=== PATIENT | female | born 1950 | race Caucasian/White ===

== ENCOUNTER 2020-12-19 09:09 | Outpatient (REF) | payer MEDICARE, MEDICAID, SELFPAY ==
--- NOTE | ~2020-12-19 | XR_ITS ---
EXAMINATION: XR PELVIS CLINICAL INFORMATION: Pain. Post right hip replacement. COMPARISON: Previous x-ray most recent March 2019 TECHNIQUE: AP view of the pelvis. FINDINGS: There is a right hip replacement in satisfactory position. No fracture, dislocation or x-ray evidence of loosening is seen. There is severe arthritis at the left hip joint with joint space narrowing, osteophyte formation and subchondral cyst formation. Bones of the pelvis are unremarkable. There are degenerative changes of the lower lumbar spine. There is soft tissue arterial calcification. There are soft tissue calcifications in the pelvis probably representing small calcified fibroid. XR/XR pelvis 1-2V IMPRESSION: Satisfactory appearance of right hip replacement. Severe left hip arthritis.
== END 2020-12-19 09:10 | disposition home or self-care (01) ==
LOC: HO.HOSX 09:09
PROVIDERS: PCP Nurse Practitioner Family; Visit Provider Orthopaedic Surgery
DX: M16.12 Unilateral primary osteoarthritis, left hip (principal)
CPT/HCPCS: 72170; 99212

== ENCOUNTER → 2021-10-13 10:18 | Outpatient (BNVA) | payer MEDICARE, MEDICAID, SELFPAY | PROVIDERS: PCP Nurse Practitioner Family; Visit Provider Internal Medicine | DX: J44.9 Chronic obstructive pulmonary disease, unspecified (principal); F17.200 Nicotine dependence, unspecified, uncomplicated; Z71.6 Tobacco abuse counseling | CPT/HCPCS: 99202 ==

== ENCOUNTER 2021-11-05 08:00 | Outpatient (REF) | payer MEDICARE, MEDICAID, SELFPAY ==
--- NOTE | 2021-11-05 12:04 | PFT_ITS ---
FLOWS: FEV1 64% of predicted at 1.24 L. FVC 85% of predicted at 2.20 L. FEV1 to FVC ratio of 0.56. No bronchodilator response. LUNG VOLUMES: Total lung capacity 107% of predicted at 4.93 L. Residual volume 122% of predicted at 2.55 L. Slow vital capacity 94% of predicted at 2.39 L. Expiratory reserve volume 136% of predicted at 0.73 L. Diffusion capacity is moderately decreased. In comparison to pulmonary function test performed in July of 2015 FEV1, FVC, TLC have been without significant changes; residual volume has decreased by 0.85 L; slow vital capacity has increased by 0.88 L; expiratory reserve volume has increased by 0.40 L; diffusion capacity has increased by 1.73 mL/minute per mmHg. IMPRESSION: Moderate obstructive ventilatory defect with no bronchodilator response. Increased residual volume suggests air trapping. Decreased diffusion capacity suggests emphysema. MD MICHAEL Roman/MODL / [id number]
== END 2021-11-05 08:01 | disposition home or self-care (01) ==
LOC: HO.RESP 08:00
PROVIDERS: PCP Nurse Practitioner Family; Visit Provider Internal Medicine
DX: J44.9 Chronic obstructive pulmonary disease, unspecified (principal); F17.200 Nicotine dependence, unspecified, uncomplicated
CPT/HCPCS: 94060; 94727; 94729

== ENCOUNTER → 2021-11-26 09:40 | Outpatient (BNVA) | payer MEDICARE, MEDICAID, SELFPAY | PROVIDERS: PCP Nurse Practitioner Family; Visit Provider Internal Medicine | DX: J44.9 Chronic obstructive pulmonary disease, unspecified (principal); F17.210 Nicotine dependence, cigarettes, uncomplicated; Z71.6 Tobacco abuse counseling | CPT/HCPCS: 99212 ==

== ENCOUNTER 2022-03-19 13:18 | Outpatient (REF) | payer MEDICARE, MEDICAID, SELFPAY ==
--- NOTE | ~2022-03-19 | CT_ITS ---
EXAMINATION: CT CHEST SCREENING CLINICAL INFORMATION: Current smoker. 56 pack year history. COMPARISON: None. TECHNIQUE: Multidetector volumetric CT imaging of the chest is performed without contrast using low dose technique. Additional 2D coronal and sagittal reformatted images and axial 3D maximum intensity projection (MIP) images are generated on the CT workstation. This CT examination was performed using dose optimization techniques as appropriate, variously including the following: *Automated exposure control *Adjustment of mA and/or kV according to patient size (this includes techniques or standardized protocols for targeted exams where dose is matched to indication/reason for exam; i.e. extremities or head) *Use of iterative reconstruction technique DLP: 34 mGy-cm FINDINGS: LUNGS: There is evidence of emphysema. There is biapical pleural and parenchymal scarring. There are scattered areas of mild bronchial wall thickening and increased peribronchial attenuation, suggestive of airways disease.. There is a 2 mm left upper lobe nodule axial image 100 series 5. There is a 4 mm peripheral or subpleural left upper lobe nodule axial image 158 series 5. There is a 6 mm semisolid left lower lobe nodule axial image 213 series 5. This is adjacent cystic change inferiorly measuring 7 mm axial image 217 series 5. There is a 1 x 1.5 cm heterogeneous partially groundglass attenuation partially cystic and reticular density in the anterior segment of the right upper lobe axial image 228 series 5. On sagittal and coronal reconstructed images linear reticular component may correspond to subsegmental atelectasis or scarring. There is a 3 mm semisolid left upper lobe nodule axial image 227 series 5. There is a 2 mm peripheral or subpleural right lower lobe nodule axial image 224 series 5. There is a 3 mm left lower lobe nodule axial image 221 series 5. There is a 5 mm peripheral or subpleural right middle lobe nodule axial image through the 74 series 5. MEDIASTINUM: The mediastinum is normal. CORONARY ARTERY CALCIFICATION: Severe PLEURA: There is no pleural effusion. No pleural mass or thickening. AXILLA: No lymphadenopathy. UPPER ABDOMEN: Severe atherosclerotic disease. There may be several low-attenuation liver lesions. These are small measuring 5 mm or less and difficult to further characterize. OSSEOUS STRUCTURES: Degenerative changes of the spine. CT/CT lung screening IMPRESSION: Emphysema. Biapical pleural parenchymal scarring. Bilateral pulmonary nodules, largest a heterogeneous 1 x 1.5 cm nodule in the anterior segment of the right upper lobe. Numerous other smaller nodules and evidence of airways disease. Severe coronary artery calcification. ASSESSMENT: Lung-RADS category 4S: Suspicious. Severe coronary artery calcification. RECOMMENDATION: Low dose chest CT follow-up in 3 months recommended. Cardiology consultation for severe coronary artery calcification.
== END 2022-03-19 13:19 | disposition home or self-care (01) ==
LOC: HO.CT 13:18
PROVIDERS: PCP Nurse Practitioner Family; Visit Provider Physician Assistant Medical
DX: Z12.2 Encounter for screening for malignant neoplasm of respiratory organs (principal); F17.210 Nicotine dependence, cigarettes, uncomplicated
CPT/HCPCS: 71271; G0296

== ENCOUNTER → 2022-03-25 09:26 | Outpatient (BNVA) | payer MEDICARE, MEDICAID, SELFPAY | PROVIDERS: PCP Nurse Practitioner Family; Visit Provider Internal Medicine | DX: J44.9 Chronic obstructive pulmonary disease, unspecified (principal); R91.1 Solitary pulmonary nodule; F17.210 Nicotine dependence, cigarettes, uncomplicated | CPT/HCPCS: 99212 ==

== ENCOUNTER 2022-06-18 08:31 | Outpatient (REF) | payer MEDICARE, MEDICAID, SELFPAY ==
--- NOTE | ~2022-06-18 | CT_ITS ---
EXAMINATION: CT CHEST SCREENING CLINICAL INFORMATION: Smoker, 2 pack per day for 56 years COMPARISON: None available. TECHNIQUE: Multidetector volumetric CT imaging of the chest is performed without contrast using low dose technique. Additional 2D coronal and sagittal reformatted images and axial 3D maximum intensity projection (MIP) images are generated on the CT workstation. This CT examination was performed using dose optimization techniques as appropriate, variously including the following: *Automated exposure control *Adjustment of mA and/or kV according to patient size (this includes techniques or standardized protocols for targeted exams where dose is matched to indication/reason for exam; i.e. extremities or head) *Use of iterative reconstruction technique DLP: 34 mGy-cm FINDINGS: LUNGS: There is mild centrilobular emphysema without any acute pneumonic process. There are pulmonary nodules as visualized previously. A 2 mm nodule left upper lobe, axial image 96/6 A 4 mm subpleural nodule left upper lobe axial image 153/6 A 1.2 cm ill-defined nodule left lower lobe superior segment axial image 231/6 (previously measured 6 mm) A 2 mm subpleural nodule right upper lobe anterior segment image 232/6 A stable, ill-defined opacity right upper lobe anterior segment medially, question focal atelectasis A 3 mm semisolid nodule left upper lobe axial image 222/6 A 2 mm nodule right lower lobe subpleural location axial image 247/6. There are no new nodules visualized. MEDIASTINUM: Thyroid lobes are symmetrical and normal. The central trachea and the bronchi are widely patent. Heart size and great vessels are normal caliber. No pericardial effusion. No abnormal size mediastinal or hilar lymph nodes seen. CORONARY ARTERY CALCIFICATION: Moderate coronary artery calcifications are present. PLEURA: There is no pleural effusion. No pleural mass or thickening. AXILLA: No lymphadenopathy. UPPER ABDOMEN: Unremarkable OSSEOUS STRUCTURES: There is mild osteopenia. Mild ventral spondylosis lower dorsal spine. No aggressive lytic or sclerotic process. CT/CT lung screen follow up IMPRESSION: Stable multiple pulmonary nodules except for a left upper lobe nodule which has doubled in size in the superior segment left upper lobe image 231/6. Recommend PET/CT evaluation or a 3 month follow-up. ASSESSMENT: Lung-RADS category 4A. RECOMMENDATION: 3 month low-dose PET/CT exam.
== END 2022-06-18 08:32 | disposition home or self-care (01) ==
LOC: HO.CT 08:31
PROVIDERS: PCP Nurse Practitioner Family; Visit Provider Physician Assistant Medical
DX: Z12.2 Encounter for screening for malignant neoplasm of respiratory organs (principal); F17.210 Nicotine dependence, cigarettes, uncomplicated; R91.1 Solitary pulmonary nodule
CPT/HCPCS: 71250

== ENCOUNTER → 2022-07-02 10:23 | Outpatient (BNVA) | payer MEDICARE, MEDICAID, SELFPAY | PROVIDERS: PCP Nurse Practitioner Family; Visit Provider Surgery | DX: R91.1 Solitary pulmonary nodule (principal) | CPT/HCPCS: 99202 ==

== ENCOUNTER 2022-08-27 10:30 | Outpatient (REF) | payer MEDICARE, MEDICAID, SELFPAY ==
--- NOTE | ~2022-08-27 | XR_ITS ---
EXAMINATION: XR CHEST CLINICAL INFORMATION: Solitary pulmonary nodule Patient states left-sided lung surgery on August 11 COMPARISON: Low-dose chest CT 06/18/2022, chest radiograph 04/20/2010 TECHNIQUE: 2 views of the chest were obtained. FINDINGS: The lungs are hyperinflated. There is a small to moderate left pleural effusion. There is slight leftward shift of the mediastinum to the left of midline. There is no focal consolidation, interstitial pulmonary edema or pneumothorax. The bones are diffusely demineralized. No acute bony abnormality. XR/XR chest 2V IMPRESSION: Small to moderate left pleural effusion with slight leftward shift of the mediastinum.
== END 2022-08-27 10:31 | disposition home or self-care (01) ==
LOC: HO.XRAY 10:30
PROVIDERS: Visit Provider Surgery
DX: R91.1 Solitary pulmonary nodule (principal)
CPT/HCPCS: 71046

== ENCOUNTER 2022-09-10 10:26 | Outpatient (AMB) | payer MEDICARE, MEDICAID, SELFPAY ==
[2022-09-10 10:59] VITALS: BP 120/60; PULSE 54; O2SAT 94; BMI 20.1
--- NOTE | 2022-09-10 10:59 | A.OFFVIS_ITS ---
Intake Vital Signs 09/10/22 10:59 Height 5 ft 2 in Weight 110 lb BMI 20.1 BP 120/60 Blood Pressure Location Lt brachial Position Sitting Pulse 54 Pulse Oximetry (%) 94 Intake Visit Reasons: Davinci wedge Allergies Fish Containing Products Allergy (Intermediate, Verified 09/10/22 10:59) ITCHING air conditioning Adverse Reaction (Uncoded 09/10/22 10:59) Difficulty Breathing Medication List - Last Reconciled 09/11/22 by Oscar Brambila MD albuterol 90 mcg/actuation mcg inhalation albuterol sulfate 2.5 mg inhalation Q6H PRN [id number]-[id number] HMB 7-7-1.5 gram (Jag) ea PO atorvastatin 10 mg PO DAILY ibuprofen (Advil) 400 mg PO Q8H umeclidinium 62.5 mcg/actuation (Incruse Ellipta) 1 inh inhalation DAILY HPI Davinci wedge HPI Details 72-year-old woman current smoker but only smoking 2 cigarettes per day now previously smoked a pack per day for 45 years.? She is part of the lung cancer screening program here at [facility] and had a low-dose CT scan of the chest on 03/19/2022 followed up on 06/18/2022.? Her most recent CT scans have been reviewed interpreted by me directly.? This shows an increase in a 1.2 cm pulmonary nodule in the superior segment the left lower lobe that is partially spiculated and ill-defined.? There is no mediastinal lymphadenopathy a nd no pleural fluid.? There are scattered tiny sub 3 mm pulmonary nodules elsewhere.? Pulmonary function testing done on 11/05/2021 showed an FEV1 of 62% of predicted and a DLCO VA of 58% of predicted.? She was discussed at our multidisciplinary thoracic Oncology Conference. Ultimately, on 08/11/2022 she underwent a da Ori left lower lobe wedge resection with completion lobectomy. She did quite well postoperatively and has been discharged and doing well at home. Her pain is quite minimal at this point. She denies any drainage or fevers. She denies any worsening shortness of breath. Pathology from the operation was squamous cell carcinoma measuring 1.6 cm [id number]. Most of her complaints revolve around her hip which she needs to have replaced but has been canceled several times for various reasons.? She reports feeling generally good health and denies fevers chills soaking sweats or fatigue.? She denies chest pain.? She does have some shortness of breath with activity but her hip limits her much more than this does.? She denies cough or hemoptysis.? Other than above, 12 point review of systems was done and documented separately in the office chart with detailed social and family history. ? 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) Surgical History History of cholecystectomy History of lobectomy of lung (~2022) History of surgery on left wrist (~2010) History of total right hip replacement (~2018) Social History Patient Tobacco Use Status: Current someday Tobacco user Tobacco use type: Cigarette Cigarette Packs Per Day: 0.25 Cigarettes Per Day: 2 Years Smoked: (onset 17yo, 1ppd x 54yrs, now 1-3cig/week, 50pyh Physical Exam Vital Signs: Last Vital Signs Pulse 54 09/10/22 10:59 BP 120/60 09/10/22 10:59 Pulse Ox 94 09/10/22 10:59 BMI result Body Mass Index 20.1 nad rrr ctab abd soft nl bs wounds healing well Assessment & Plan Assessment & Plan (1) 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 No evidence of infection or lung collapse. I explained the pathology to her in detail which she seemed understand. Plan will be for the surveillance protocol post surgical treatment of a lung cancer which is a CAT scan every 6 months for the first 2 years followed by yearly for 3 years after that as long as there are no new changes. There will be a visit associated with each of these CAT scans. She understands and agrees to that plan. 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
== END 2022-09-10 11:20 | disposition home or self-care (01) ==
PROVIDERS: PCP Nurse Practitioner Family; Visit Provider Surgery
DX: C34.32 Malignant neoplasm of lower lobe, left bronchus or lung (principal)
CPT/HCPCS: 99024

== ENCOUNTER → 2022-09-10 10:26 | Outpatient (BNVA) | payer MEDICARE, MEDICAID, SELFPAY | PROVIDERS: PCP Nurse Practitioner Family; Visit Provider Surgery | DX: C34.32 Malignant neoplasm of lower lobe, left bronchus or lung (principal); Z98.890 Other specified postprocedural states ==

== ENCOUNTER 2023-07-08 08:22 | Outpatient (REF) | payer MEDICARE, SELFPAY ==
--- NOTE | ~2023-07-08 | CT_ITS ---
CT SINUS WITHOUT CONTRAST HISTORY: Deviated septum TECHNIQUE: CT images of the paranasal sinuses were acquired without contrast. This CT examination was performed using dose optimization techniques as appropriate, variously including the following: *Automated exposure control *Adjustment of mA and/or kV according to patient size (this includes techniques or standardized protocols for targeted exams where dose is matched to indication/reason for exam; i.e. extremities or head) *Use of iterative reconstruction technique DLP: 71.92 mGy-cm COMPARISON: None available FINDINGS: NASAL CAVITY: The nasal septum is relatively midline left middle turbinate alexander bullosa. The cribriform plate is intact. The lateral lamellae and fovea ethmoidalis are relatively symmetric. FRONTAL SINUS: Right: Essentially clear. The outflow tract is patent. Left: Essentially clear. The outflow tract is patent. ETHMOID AIR CELLS: Right: Essentially clear. Left: Essentially clear. SPHENOID SINUS: Right: Essentially clear. The outflow tract is patent. Left: Essentially clear. The outflow tract is patent. MAXILLARY SINUS: Right: Trace mucosal thickening inferiorly. The outflow tract is patent. Left: Essentially clear. The outflow tract is patent. OTHER: Intracranial atherosclerotic calcification is noted. Otherwise, the visualized intracranial structures are unremarkable on these low mAs images. Soft tissue in the external auditory canals, likely cerumen. The mastoid air cells and middle ear clefts are clear. Absent maxillary dentition. CT/CT sinus wo IV con IMPRESSION: Essentially clear paranasal sinuses. No air-fluid levels to indicate acute sinusitis. Left middle turbinate alexander bullosa. The nasal septum is relatively midline.
== END 2023-07-08 08:23 | disposition home or self-care (01) ==
LOC: HO.CT 08:22
PROVIDERS: PCP Nurse Practitioner Family; Visit Provider Otolaryngology
DX: J33.0 Polyp of nasal cavity (principal); J34.2 Deviated nasal septum
CPT/HCPCS: 70486

== ENCOUNTER 2024-02-14 07:17 | Outpatient (REF) | payer MEDICARE, SELFPAY ==
--- NOTE | ~2024-02-14 | CT_ITS ---
EXAMINATION: CT CHEST WITHOUT CONTRAST CLINICAL INFORMATION: Lung cancer. COMPARISON: CT lung screening 06/18/2022 TECHNIQUE: Multidetector volumetric CT imaging of the chest was done. Axial MIP volume rendering provided. Sagittal and coronal reformatted images were obtained. This CT examination was performed using dose optimization techniques as appropriate, variously including the following: *Automated exposure control *Adjustment of mA and/or kV according to patient size (this includes techniques or standardized protocols for targeted exams where dose is matched to indication/reason for exam; i.e. extremities or head) *Use of iterative reconstruction technique DLP 74 mGy/cm. 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 LUNGS: Mild centrilobular emphysematous lungs are seen without acute pneumonic process. The right lung is slightly hyperinflated more than the previous study. Bilateral apical parenchymal scarring and pleural thickening is seen. There are bilateral pulmonary nodules. There are 2 mm pulmonary nodule seen in left upper lobe on axial image 166/7, 172/7. The larger peripherally based nodular left upper lobe measuring 4 mm not visualized this time. Previously seen left lower lobe superior segment 1.2 cm nodule is not visualized on the present exam. It has resolved. Smaller 2 mm nodules in both upper lobes and right lower lobe are stable. No new large nodule or mass seen. Subpleural atelectatic changes are seen in left lower lobe. MEDIASTINUM: There is a left thyroid hypodense nodule measuring 1.3 to 1.1 cm is visualized. It was not in the [id number]-lubt on the last exam. The right thyroid lobe is normal. The central tracheal size has increased compared to previous study the tracheal and bronchial airway is otherwise widely patent. Heart size and the great vessels are normal caliber. No pericardial effusion seen. No abnormal size mediastinal hilar lymph nodes. CORONARY ARTERY CALCIFICATION: There is mild coronary artery calcifications present. PLEURA: There is bilateral apical pleural thickening and minimal left lower lobe medial basilar pleural thickening new since the previous study. AXILLA: No lymphadenopathy. UPPER ABDOMEN: Visualized liver, spleen, pancreas and bilateral adrenal glands are unremarkable. OSSEOUS STRUCTURES: No aggressive lytic or sclerotic process seen. There is ventral spondylosis mid dorsal within exam thoracic kyphosis of the thoracic or lumbar junction. CT/CT chest wo IV con IMPRESSION: Emphysematous lungs without acute pneumonic process. The right lung is more hyperinflated compared to previous exam. The tracheal size is increased as well. Dominant 1.2 cm nodule seen in the left lower lobe superior segment has resolved. There are several small 2-3 mm nodules seen previously, are stable. No new nodule seen. Fleischner guidelines were followed. Electronically signed by: Edwar Haywood MD 02/14/2024 09:53 AM [facility]
== END 2024-02-14 07:18 | disposition home or self-care (01) ==
LOC: HO.CT 07:17
PROVIDERS: PCP Nurse Practitioner Family; Visit Provider Surgery
DX: C34.32 Malignant neoplasm of lower lobe, left bronchus or lung (principal)
CPT/HCPCS: 71250

== ENCOUNTER → 2024-02-14 07:19 | Outpatient (BNV) | payer MEDICARE, SELFPAY | PROVIDERS: PCP Nurse Practitioner Family; Visit Provider Radiology Diagnostic Radiology | DX: R91.8 Other nonspecific abnormal finding of lung field (principal) | CPT/HCPCS: 71250 ==

== ENCOUNTER 2024-05-22 09:30 | Outpatient (AMB) | payer MEDICARE, MEDICAID, SELFPAY ==
--- NOTE | 2024-05-22 09:33 | MHC.OFFVIS ---
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 Insurance company went to patient's house and was told her right side was 0.93 and left side was 0.58. 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 Following noninvasive vascular testing, concerns were raised due to her DHRUV results?0.58 on the left and 0.93 on the right, dated 03/09/24?leading to this referral. She has a history of right hip replacement from 2019 and is currently facing challenges with her left leg, which she suspects will require surgical intervention due to increased symptoms and functional limitation, such as calf cramps that occur with physical exertion. These symptoms hinder her mobility, especially in stair climbing. Historically, she was a vtt-vacc-c-day smoker who now reports using only two cigarettes a week, indicative of substantial smoking cessation effort. She has no known history of diabetes or cardiovascular events. Recent falls led to the discovery and resection of a benign pulmonary nodule. She now presents for vascular evaluation. 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) History of tuberculosis (~1958) Nicotine dependence, cigarettes, uncomplicated COPD (chronic obstructive pulmonary disease) Hypercholesteremia Surgical History History of lobectomy of lung (~2022) History of total right hip replacement (~2018) History of surgery on left wrist (~2010) History of cholecystectomy Social History Patient Tobacco Use Status: Current someday Tobacco user Tobacco use type: Cigarette Cigarette Packs Per Day: 0.25 Cigarettes Per Day: 2 Years Smoked: (onset 17yo, 1ppd x 54yrs, now 1-3cig/week, 50pyh Review of Systems Const All systems reviewed & are unremarkable except as noted in HPI and below Reports no additional complaints ENT Reports Normal hearing present Card Denies chest pain, Denies chest pain at rest, Denies chest pain with activity and Denies pedal edema Resp Denies cough GI Denies abdominal pain Musc Denies abnormal gait, Denies muscle cramps and Denies radiating pain into limb Skin/Breast Denies skin ulcer and Denies wounds Neuro Reports Normal hearing present and Denies abnormal gait Psych Reports no additional complaints Physical Exam Const General: cooperative, healthy appearing and comfortable Orientation/consciousness: oriented to person, oriented to place and oriented to time HEENT Head: Yes normal to inspection Neck Neck: Yes normal visual inspection Carotids: no bruits Chest Chest palpation & inspection: normal inspection of the chest Resp Effort & Inspection: normal respiratory effort and able to speak in complete sentences Auscultation: clear to auscultation bilaterally, no crackles, no rales, no rhonchi and no wheezes Cardio Other: Bilateral DP signals Rate: regular rate Rhythm: regular rhythm Heart sounds: S1 normal heart sound present and S2 normal heart sound present Bruits: no carotid bruits Peripheral pulses: Peripheral pulses 2+ throughout GI Inspection: Yes normal to inspection Skin Wounds: no wounds Hair: normal Neuro General: oriented to person, oriented to place and oriented to time Cranial nerves: Yes CN's II-XII intact bilaterally and Yes Normal hearing present Cognition (Neuro): normal cognition Motor exam (neuro): 5/5 motor strength present throughout Extrem Other: venous exam: No significant superficial varicosities or spider telangiectasias, minimal edema General: No clubbing, No cyanosis and No edema Psych Appearance: grossly normal Mental Status: mental status grossly normal Speech and movement: Normal speech and movement present Assessment & Plan Assessment & Plan (1) PAD (peripheral artery disease): Code(s): I73.9 - Peripheral vascular disease, unspecified Category: Medical Plan: I provided an overview of the likely diagnosis of peripheral vascular disease with consideration of recent DHRUV testing results, recommending a follow-up vascular ultrasound for further clarity. I discussed potential interventions, emphasizing the need for continued smoking cessation, which the patient has significantly reduced. We explained the benefits of further evaluation through a hospital-based ultrasound to surpass the limitations of initial testing conducted at home. The importance of addressing the leg symptoms comprehensively, in view of potential hip surgery, was discussed to aid in enhancing mobility and quality of life. I emphasized timely follow-up, with centralized scheduling to coordinate this advanced imaging study, and reviewed plans for future appointments. The patient acknowledged understanding and was in agreement with the proposed evaluation and management strategy, agreeing to the outlined logistics and follow-up scheduling. Plan Patient was informed and verbally consented to the use of an ambient scribe for clinic note documentation during this visit. Orders: Orders US arterial duplex LE BI 1 Week I73.9 - Peripheral vascular disease, unspecified Patient Instructions: - Schedule and attend the vascular ultrasound for further evaluation of leg circulation. - Continue efforts in smoking cessation to improve overall health and vascular status. - Arrange transportation with available support, keeping in mind her mobility limitations. - Follow up with the appointment scheduling department and reach out if needed to ensure coordination with family or transport assistance. - Alert medical diagnostic radiographer if there are any changes in symptoms or new concerns. Coding Level of Care Code New Pt Level 4 (96891) Complex EM visit Add On G2211 Diagnoses PAD (peripheral artery disease) I73.9
--- OUTSIDE RECORDS SUMMARY | 2024-05-22 10:41 | XMS_ITS | Continuity of Care Document ---
Author Organization [facility] Kee Haynes Keshawn lt Address [address] [place] [address]- Care Team Providers Care Pit Shovel Operator Name Role Phone Ino TY, Renetta Clark Primary Care Physician Encounter [facility] Date(s): 04/19/24 - 05/19/24 [facility] Adult [address] [place] [address]- Encounter Type: Triage Allergies, Adverse Reactions, Alerts No Known Allergies Immunizations Given and Recorded Vaccine Date Status Refusal Reason SARS-CoV-2 (COVID-19) mRNA-1273 vaccine 07/21/21 R ecorded SARS-CoV-2 (COVID-19) mRNA BNT-162b2 vac 12/23/20 Recorded influenza virus vaccine, inactivated 12/04/20 Darinel rded influenza virus vaccine, inactivated 12/04/19 Darinel rded influenza virus vaccine, inactivated 11/27/18 Darinel rded influenza virus vaccine, inactivated 1 12/06/17 Gi andres influenza virus vaccine, inactivated 2 11/25/16 Gi andres SARS-CoV-2 (COVID-19) Ad26 vaccine 05/20/20 Record ed SARS-CoV-2 (COVID-19) Ad26 vaccine 05/13/20 Record ed pneumococcal 23-valent vaccine 11/27/18 Recorded pneumococcal 23-valent vaccine 3 12/06/17 Given tetanus/diphtheria/pertussis, acel(Tdap) 11/22/16 Recorded pneumococcal 13-valent vaccine 07/29/15 Given 1Result Comment: [12/06/2017] [facility] [place] [id number] 2Result Comment: [11/25/2016] [facility] [id number] 3Result Comment: [12/06/2017] [id number] Medications Albuterol (Eqv-ProAir HFA) 90 mcg/inh inhalation aerosol 2 puffs, Inhalation, Every 6 hours, # 8.5 Gm, 6 Refills, Maintenance, 09/26/23 9:30:00 AM EDT, [facility] # [facility], 25, INHALE 2 PUFFS EVERY 6 HOURS, 156.2, cm, 09/13/23 8:19:00 EDT, Height Start Date: 09/26/23 Status: Ordered Quantity: 8.5 Unit: g Repeat number: 1 atorvastatin 10 mg oral tablet 1 tablet, By Mouth, Daily, # 90 tablet, 1 Refills, Maintenance, 11/14/23 8:55:00 AM EDT, [facility] # [facility], 156.2, cm, 09/13/23 8:19:00 EDT, Height Start Date: 11/14/23 Status: Ordered Quantity: 90.0 Unit: tablet Repeat number: 1 Incruse Ellipta 62.5 mcg/inh inhalation powder 1 puffs, Inhalation, Daily, APART., # 90 each, 1 Refills, Maintenance, 10/19/23 11:38:00 AM EDT, [facility] # [facility], 156.2, cm, 09/13/23 8:19:00 EDT, Height Start Date: 10/19/23 Stop Date: 10/20/23 Status: Ordered Quantity: 90.0 Unit: each Repeat number: 2 losartan 25 mg oral tablet 1 tablet, By Mouth, Daily, # 30 tablet, 6 Refills, Maintenance, 08/05/23 6:42:00 AM EDT, [facility] # 50, 156.2, cm, 02/08/23 18:22:00 EST, Height Start Date: 08/05/23 Status: Ordered Quantity: 30.0 Unit: tablet Repeat number: 1 NEBULIZER FITO NEBULIZER FITO, See Instructions, # 1 each, 0 Refills, Maintenance, INSTRUCTED., 10/06/21 12:33:00 PM EDT, 156.2, cm, 09/29/21 9:00:00 EDT, Height Start Date: 10/06/21 Status: Ordered Quantity: 1.0 Unit: each Repeat number: 1 Nebulizer/Compressor See Instructions, # 1 each, Refills 0, Tot. Refills 0, Maintenance, DX: COPD J44.9, 07/23/21 3:02:00PM EDT, Supply Start Date: 07/23/21 Status: Ordered Quantity: 1.0 Unit: each Repeat number: 1 traMADol 50 mg oral tablet 1 tablet, By Mouth, Every 12 hours, PRN NEEDED FOR PAIN, # 45 tablet, 2 Refills, Maintenance, 01/23/24 9:08:00 AM EST, [facility] # [facility], 156.2, cm, 09/13/23 8:19:00 EDT, Height Start Date: 01/23/24 Stop Date: 04/22/24 Status: Ordered Quantity: 45.0 Unit: tablet Repeat number: 3 Problem List Condition Confirmation Course Effective Dates Status Health Status Informant Allergic rhinitis Confirmed Active Anxiety Confirmed Active Chronic low back pain Confirmed Active COPD (chronic obstructive pulmonary disease) Confirmed Active COVID-19 virus infection Confirmed Active Hx of tuberculosis Confirmed Active Hypercholesteremia Confirmed Active Hypertension Confirmed Active Squamous cell carcinoma of lung Confirmed Active Tobacco abuse Confirmed Active Social History Social History Type Response Smoking Status Current every day sm oker; Type: Cigarettes; Tobacco use times per day: 1/2 PPD; Started at age: 13; entered on: 07/29/15 Sex Sex Representation Female (finding) Patient Care team information Care Team Personnel Name: Ino TY, Renetta Clark Position: [facility] PCO Associate Professional Member Role: PCP Address: [address] [place] [id number] Telecom: Care Team Related Persons Name: TANMAY SEVILLA Name: AKANKSHA OWEN Insurance Providers Guarantor name: MELVIN LUKE Health Plan Information #: 1 Payer: [employer] MEDICARE ADV HMO Member Number: NA Policy Number: NA Group Number: NA Health Plan Information #: 2 Payer: [place] Member Number: NA Policy Number: NA Group Number: NA
--- OUTSIDE RECORDS SUMMARY | 2024-05-22 10:41 | XMS_ITS | Clinical Summary ---
Author Organization [facility] Address [address] [place] [address] Phone Care Team Providers Care Shovel Mechanic Name Role Phone Renetta Mckinnon PHYSICAL MEDICINE SPECIALIST Primary Care Provider Allergies Active Allergy Reactions Criticality Noted Date Comments Fish Derived 07/13/2022 Medications albuterol HFA (PROAIR HFA ; PROVENTIL HFA ; VENTOLIN HFA) 90 mcg/actuation inhaler Inhale 2 Puffs into the lungs every 4 hours as needed. Active atorvastatin (LIPITOR) 10 mg tablet Take 1 Tablet by mouth daily. Active lactose-reduced food (NUTRITIONAL SUPPLEMENT ORAL) NUTRITIONAL SUPPLEMENTS (ANTHONY/HMB OR) Take 771.5 g by mouth daily. Active umeclidinium (Incruse Ellipta) 62.5 mcg/actuation inhalation Inhale 1 Inhaler into the lungs daily. Active Active Problems Problem Noted Date Diagnosed Date History of lung cancer 02/21/2024 Assessment & Plan (02/21/2024 4:16 PM EST): Ms. Rubalcava is a 73-year-old female who had a robotic left lower lobectomy in August 2022 for stage I squamous cell carcinoma. The patient's most recent surveillance chest CT scan performed at [facility] on February 14, 2024 shows no new, or worsening, pulmonary nodules or thoracic adenopathy to suggest recurrence or new disease. Will continue with routine chest CT surveillance the next of which will be in 6 months, August 2024. This will be done at [facility] per the patient's request and ease. Patient will have a follow-up visit in the office following the CT scan. Resolved Problems Problem Noted Date Diagnosed Date Resolved Date Primary cancer of left lower lobe of lung (CMS/HCC V24, CMS/HCC V28) 04/14/2023 02/21/2024 Overview (12/29/2023): Last Assessment & Plan: 72-year-old woman had a da Ori left lower lobe wedge resection with completion lobectomy on 08/11/2022 for squamous cell carcinoma 1.6 cm T1b N0. Her first 6- month follow-up CT scan shows no evidence of recurrence or new disease. I discussed with her in detail the findings of the CAT scan as described in the HPI. We also discussed surveillance protocol after surgery for lung cancer which is a CAT scan every 6 months for the first 2 years postoperatively followed by yearly for 3 years after that as long as there are no new changes. Each CAT scan is followed by visit with us. Plan then will be for a CAT scan in 6 months which she would like to have at [place] as it is much easier to get to and then follow-up in the office with one of the PAs. All questions were answered. Encounters Date Type Department Care Team Description 02/23/2024 9:30 AM EST Office Visit Thoracic Surgery - [address] [place] [id number] Ingrid Carbajal PA History of lung cancer from Last 3 Months Immunizations Name Administration Dates Next Due [employer] SARS-CoV-2 COVID -19, vector-nr, rS-Ad26, preservative free 05/20/2020 [employer] SARS-CoV-2 COVID-19, mRNA, LNP-S, preservative free 12/23/2020 Surgical History Surgery Date Site/Laterality Comments CHOLECYSTECTOMY PROCEDURE: HISTORICAL CHOLECYSTECTOMY HIP ARTHROPLASTY Right PROCEDURE: HISTORICAL HIP REPLACEMENT WRIST SURGERY Left PROCEDURE: HISTORICAL WRIST SURGERY Medical History Medical History Date Comments COPD (chronic obstructive pu lmonary disease) (CMS/HCC V24, CMS/HCC V28) DX:COPD (chronic o bstructive pulmonary disease) (HCC) Tuberculosis of lung DX:Tubercul osis of lung Hypercholesteremia DX:Hyperchole steremia Nicotine dependence DX:Nicotine dependence Primary cancer of left lower lobe of lung (CMS/HCC V24, CMS/HCC V28) 04/14/2023 Last Assessment & Plan : 72-year-old woman had a da Ori left lower lobe wedge resection with completion lobectomy on 08/11/2022 for squamous cell carcinoma 1.6 cm T1b N0. Her first 6-month follow-up CT scan shows no evidence of recurrence or new disease. I discussed with her in detail the findings of the CAT scan as described in the HPI. We also discussed surveillance protocol after surgery Social History Tobacco Use Types Packs/Day Years Used Date Smoking Tobacco: Every Day Tobacco Cessation:Ready to Q uit: Not Asked; Counseling Given: Not Answered Alcohol Use Standard Drinks/Week Comments Not Currently 0 (1 standard drink = 0.6 oz pur e alcohol) Comments Unknown Sex and Gender Information Value Date Recorded Sex Assigned at Not on file Legal Sex Female 8:25 PM EST Gender Identity Not on file Sexual Orientation Not on file Obstetrics History Last Filed Vital Signs Vital Sign Reading Time Taken Comments Blood Pressure 150/79 02/23/2024 9:27 AM EST Pulse 95 02/23/2024 9:27 AM EST Temperature 36.2 ??C (97.2 ??F) 02/23/2024 9:27 AM ES T Respiratory Rate 16 02/23/2024 9:27 AM EST Oxygen Saturation 98% 02/23/2024 9:27 AM EST Inhaled Oxygen Concentration - - Weight 48.4 kg (106 lb 11.2 oz) 02/23/2024 9:27 AM EST Height 154.9 cm (5' 1 ) 02/23/2024 9:27 AM EST Body Mass Index 20.16 02/23/2024 9:27 AM EST Plan of Treatment Health Maintenance Due Date Last Done Comments Breast Cancer Screening 1950 Zoster Vaccines (1 of 2) 1968 RSV Immunization Adult Patients (1 - Risk 60-74 years 1-dose series) 2009 Cholesterol Screening (Lipid Panel) 03/04/2023 Colorectal Cancer Screening: Colonoscopy 03/04/2023 Depression Screening 03/04/2023 Falls Risk Assessment 03/04/2023 Hepatitis C Screening 03/04/2023 Medicare Annual Wellness Visit 03/04/2023 Osteoporosis Screening (Bone Density Screening) 03/04/2023 Social Influencers of Health Screening 03/04/2023 Hypertension/CHF/CAD Annual BMP Blood Test 02/23/2024 DTaP,Tdap,and Td Vaccines (2 - Td or Tdap) 11/22/2026 11/22/2016 Pneumococcal Vaccine: 50+ Years Completed 11/27/2018, 12/06/2017, 07/29/2015 COVID-19 Vaccine Completed 10/20/2023, 06/2022, 07/21/2021, Additional history exists Influenza Vaccine Completed 10/25/2023, , 12/04/2020, Additional history exists HIB Vaccines Aged Out No longer eligi ble based on patient's age to complete this topic HPV Vaccines Aged Out No longer eligi ble based on patient's age to complete this topic Hepatitis A Vaccines Aged Out No long er eligible based on patient's age to complete this topic Hepatitis B Vaccines Aged Out No long er eligible based on patient's age to complete this topic IPV Vaccines Aged Out No longer eligi ble based on patient's age to complete this topic MMR Vaccines Aged Out No longer eligi ble based on patient's age to complete this topic Meningococcal ACWY Vaccine Aged Out N o longer eligible based on patient's age to complete this topic Meningococcal B Vaccine Aged Out No l onger eligible based on patient's age to complete this topic RSV Immunization Patients Under 20 months Aged Out No longer eligible based on patient's age to complete this topic Varicella Vaccines Aged Out No longer eligible based on patient's age to complete this topic Insurance AETNA MEDICARE ADVANTAGE MEDICAID - [place] Advance Directives Documents on File Type Date Recorded Patient Client Support Representative Expl anation Health Care Decision (hx) 08/02/2022 HE ALTH CARE PROXY Health Care Decision (hx) 08/02/2022 HE ALTH CARE PROXY Health Care Decision (hx) 08/02/2022 HE ALTH CARE PROXY Care Teams Shovel Mechanic Relationship Specialty Start Date End Date Renetta Mckinnon NP [address] [facility] [address] PCP - General 07/06/22
== END 2024-05-22 09:54 | disposition home or self-care (01) ==
LOC: HO.HVS 09:30
PROVIDERS: PCP Nurse Practitioner Family; Visit Provider Surgery Vascular Surgery
DX: I73.9 Peripheral vascular disease, unspecified (principal)
CPT/HCPCS: 99204; G2211

== ENCOUNTER → 2024-05-22 09:30 | Outpatient (BNVA) | payer MEDICARE, MEDICAID, SELFPAY | PROVIDERS: PCP Nurse Practitioner Family; Visit Provider Surgery Vascular Surgery | DX: I73.9 Peripheral vascular disease, unspecified (principal) | CPT/HCPCS: 99202 ==

== ENCOUNTER 2024-07-11 08:38 | Outpatient (REF) | payer MEDICARE, MEDICAID, SELFPAY ==
--- NOTE | ~2024-07-11 | US_ITS ---
EXAMINATION: US NONINVASIVE ASSESSMENT OF THE bilateral LOWER EXTREMITY WITH ARTERIAL DUPLEX AND ANKLE BRACHIAL INDICES (ABIS) CLINICAL INFORMATION: Cerebral vascular disease. COMPARISON: None available. TECHNIQUE: Duplex Doppler techniques with waveform analysis and measurement of velocities in the common femoral, profunda femoris, superficial femoral, popliteal and tibial arteries were performed. In addition, ankle pulse volume recordings, ankle pressure measurements and ankle brachial indices were obtained of the lateral lower extremity arterial system. The study was performed only at rest. FINDINGS: NONINVASIVE ASSESSMENT OF THE ARTERIES OF BILATERAL LOWER EXTREMITIES WITH ABIs: RIGHT LEG: Ankle-brachial index: 0.56 Ankle PVR waveform: Abnormal LEFT LEG: Ankle-brachial index: 0.43 Left ankle PVR: Abnormal DHRUV Reference: 0.9 - 1.4 = normal - no significant arterial disease 0.7 - 0.89 = mild peripheral arterial disease 0.51 - 0.69 = moderate peripheral arterial disease 0.50 = severe peripheral arterial disease RIGHT LOWER EXTREMITY DUPLEX ULTRASOUND: Common femoral artery: 197 cm/s. Biphasic waveform. Profunda femoris artery: 146 cm/s. Biphasic waveform. Superficial femoral artery (proximal): 106.4 cm/s. Biphasic waveform Superficial femoral artery (mid): 103.6 cm/s. Biphasic waveform Superficial femoral artery (distal): 123.5 cm/s. Is biphasic waveform Popliteal artery: 41.8 cm/s. Posterior tibial artery: 30.0 cm/s. Peroneal artery velocity: 18.9 cm/s. Dorsalis pedis artery velocity: 8.7 cm/s. Anterior tibial artery: Velocity measures 13.7 cm/s. LEFT LOWER EXTREMITY DUPLEX ULTRASOUND: Common femoral artery: 69.7 cm/s. Biphasic waveform. Profunda femoris artery: 61.5 cm/s. Monophasic waveform. Superficial femoral artery (proximal): 46.5 cm/s. Monophasic waveform Superficial femoral artery (mid): 43.8 cm/s. Biphasic waveform Superficial femoral artery (distal): 87.3 cm/s. Is biphasic waveform Popliteal artery: 41.7 cm/s. Posterior tibial artery: 18.6 cm/s. Pleural artery: Velocity 9.3 cm/second. Dorsalis pedis artery: Velocity measures 6.3 cm/second. Anterior tibial artery: Velocity measures 8.4 cm/second. Imaging of aorta reveals normal aortic caliber. The distal aortic velocity waveforms is 29.4 cm/second within normal limits. The right common iliac artery velocities are increased measuring 108.6 approximately and 224.9 distally with increased turbulence waveform suggestive of distal right external iliac artery inflow disease. Incidental finding of an arrhythmia noted. US/US arterial duplex BI w/ DHRUV IMPRESSION: Significant atherosclerotic inflow disease involving the right external iliac artery increased velocities in the right common femoral arteries and atherosclerotic plaque. There is a drop 1 velocities from the distal SFA to popliteal artery suggestive of supra popliteal and popliteal artery disease and mild stenosis. Atherosclerotic inflow disease involving the left external iliac artery with dampened and decreased velocity in the right proximal extremity including common femoral and superficial femoral arteries. Mild atherosclerotic disease proximal to left dorsalis pedis and distal peroneal arteries. No significant plaque or stenosis in left lower extremity. Normal caliber abdominal aorta and velocities. Electronically signed by: Edwar Haywood MD 07/17/2024 10:13 AM EDT
--- OUTSIDE RECORDS SUMMARY | 2024-07-11 08:49 | XMS_ITS | Clinical Summary ---
Author Organization [facility] Address [address] [place] [address] Phone Care Team Providers Care Currency Machine Operator Name Role Phone Renetta Mckinnon SOCIAL INSURANCE ADMINISTRATOR Primary Care Provider [phone] Allergies Active Allergy Reactions Criticality Noted Date [...] recent surveillance chest CT scan performed at [facility] on February 14, 2024 shows no new, or worsening, pulmonary nodules or thoracic adenopathy to suggest recurrence or new disease. Will continue with routine chest CT surveillance the next of which will be in 6 months, August 2024. This will be done at [facility] per the patient's request and ease. Patient [...] which she would like to have at [facility] as it is much easier to get to and then follow-up in the office with one of the PAs. All questions were answered. Immunizations Name Administration Dates Next Due [employer] SARS-CoV-2 COVID -19, vector-nr, rS-Ad26, preservative free 05/20/2020 [employer] SARS-CoV-2 COVID-19, mRNA, LNP-S, preservative free 12/23/2020 Surgical History Surgery Date Site/Laterality Comments CHOLECYSTECTOMY PROCEDURE: HISTORICAL CHOLECYSTECTOMY HIP ARTHROPLASTY Right PROCEDURE: HISTORICAL HIP REPLACEMENT WRIST SURGERY Left PROCEDURE: HISTORICAL WRIST SURGERY Medical History Medical History Date Comments COPD (chronic obstructive pu lmonary disease) ([facility]/HCC V24, CMS/HCC V28) DX:COPD (chronic o bstructive [...] 03/04/2023 Hypertension/CHF/CAD Annual BMP Blood Test 02/23/2024 COVID-19 Vaccine ( season) 2024 10/20/2023, 01/11/2023, 07/21/2021, Additional history exists DTaP,Tdap,and Td Vaccines (2 - Td or Tdap) 11/22/2026 11/22/2016 Pneumococcal Vaccine: 50+ Years Completed 11/27/2018, 12/06/2017, 07/29/2015 Influenza Vaccine Completed 10/25/2023, , 12/04/2020, Additional [...] Documents on File Type Date Recorded Patient Product Operations Associate Expl anation Health Care Decision (hx) 08/02/2022 HE ALTH CARE PROXY Health Care Decision (hx) 08/02/2022 HE ALTH CARE PROXY Health Care Decision (hx) 08/02/2022 HE ALTH CARE PROXY Care Teams Currency Machine Operator Relationship Specialty Start Date End Date Renetta Mckinnon NP [address] [facility] [place] [place] [address] PCP - General 07/06/22
== END 2024-07-11 08:39 | disposition home or self-care (01) ==
LOC: HO.US 08:38
PROVIDERS: PCP Nurse Practitioner Family; Visit Provider Surgery Vascular Surgery
DX: I73.9 Peripheral vascular disease, unspecified (principal); R94.39 Abnormal result of other cardiovascular function study; Z13.6 Encounter for screening for cardiovascular disorders
CPT/HCPCS: 76706; 93922; 93925

== ENCOUNTER → 2024-07-11 08:40 | Outpatient (BNV) | payer MEDICARE, MEDICAID, SELFPAY | PROVIDERS: PCP Nurse Practitioner Family; Visit Provider Radiology Diagnostic Radiology | DX: I73.9 Peripheral vascular disease, unspecified (principal) | CPT/HCPCS: 76706 ==

== ENCOUNTER 2024-07-24 08:43 | Outpatient (AMB) | payer MEDICARE, MEDICAID, SELFPAY ==
--- NOTE | 2024-07-24 08:54 | MHC.OFFVIS ---
Vital Signs 07/24/24 08:57 Height 5 ft 1 in Weight 110 lb BMI 20.8 Intake Visit Reasons: follow up Arterial US 07/11/24 Intake Note: follow up Arterial US 07/11/24. Pt states Left LE worse than Right LE. Pt main complaint is the Left hip. Auto Radiator Specialist Required: No Accompanied by: Self / Same As Patient Allergies Fish Containing Products Allergy (Intermediate, Verified 07/24/24 08:59) ITCHING air conditioning Adverse Reaction (Uncoded 07/24/24 08:59) Difficulty Breathing HPI HPI follow up Arterial US 07/11/24: Details: The patient is a 73-year-old female presenting with peripheral vascular disease for a routine follow-up. She reports ongoing leg soreness, particularly in the left leg. The discomfort is exacerbated by exercises that require bending the leg, causing significant pain that does not subside without medication. This correlates with recent ultrasound findings i indicating decreased bilateral lower extremity arterial circulation.. She has reduced her smoking habit from a pack a day to almost none over the last three to four years. The patient is on aspirin and statin. She now presents for vascular follow-up. Of note she does smoke about a cigarette daily which is down from a pack a day nearly 3-4 years prior. She is a nondiabetic. 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 (~2022) History of tuberculosis (~1958) Nicotine dependence, cigarettes, uncomplicated COPD (chronic obstructive pulmonary disease) Hypercholesteremia Surgical History History of lobectomy of lung (~2022) History of total right hip replacement (~2018) History of surgery on left wrist (~2010) History of cholecystectomy Social History Patient Tobacco Use Status: Current someday Tobacco user Tobacco use type: Cigarette Cigarette Packs Per Day: 0.25 Cigarettes Per Day: 2 Years Smoked: (onset 17yo, 1ppd x 54yrs, now 1-3cig/week, 50pyh Review of Systems Const All systems reviewed & are unremarkable except as noted in HPI and below Reports no additional complaints ENT Reports Normal hearing present Card Denies chest pain, Denies chest pain at rest, Denies chest pain with activity and Denies pedal edema Resp Denies cough GI Denies abdominal pain Musc Denies abnormal gait, Denies muscle cramps and Denies radiating pain into limb Skin/Breast Denies skin ulcer and Denies wounds Neuro Reports Normal hearing present and Denies abnormal gait Psych Reports no additional complaints Physical Exam Vital Signs: BMI result Body Mass Index 20.8 Const General: cooperative, healthy appearing and comfortable Orientation/consciousness: oriented to person, oriented to place and oriented to time HEENT Head: Yes normal to inspection Neck Neck: Yes normal visual inspection Carotids: no bruits Chest Chest palpation & inspection: normal inspection of the chest Resp Effort & Inspection: normal respiratory effort and able to speak in complete sentences Auscultation: clear to auscultation bilaterally, no crackles, no rales, no rhonchi and no wheezes Cardio Rate: regular rate Rhythm: regular rhythm Heart sounds: S1 normal heart sound present and S2 normal heart sound present Bruits: no carotid bruits Peripheral pulses: Peripheral pulses 2+ throughout GI Inspection: Yes normal to inspection Skin Wounds: no wounds Hair: normal Neuro General: oriented to person, oriented to place and oriented to time Cranial nerves: Yes CN's II-XII intact bilaterally and Yes Normal hearing present Cognition (Neuro): normal cognition Motor exam (neuro): 5/5 motor strength present throughout Extrem Other: venous exam: No significant superficial varicosities or spider telangiectasias, minimal edema General: No clubbing, No cyanosis and No edema Psych Appearance: grossly normal Mental Status: mental status grossly normal Speech and movement: Normal speech and movement present Results Reviewed Results Reviewed: Noninvasive arterial testing dated 07/11/2024 demonstrates DHRUV on the right of 0.56 and on the left of 0.43. Written report and images were reviewed. Assessment & Plan Assessment & Plan (1) PAD (peripheral artery disease): Code(s): I73.9 - Peripheral vascular disease, unspecified Category: Medical Plan: Patient notes leg pain when walking distances. I have discussed the pathophysiology of peripheral vascular disease with the patient. I have also discussed risk factor modification. I have reviewed the patient's arterial testing which reveals DHRUV of 0.43 and SFA disease. the patient would benefit from a left leg endovascular peripheral angiogram with possible angioplasty, stent, and/or atherectomy. This has been discussed in detail with the patient along with risks, benefits, and complications. This includes but is not limited to bleeding, infection, heart attack, need for emergent surgical repair, limb ischemia, blood vessel damage, bleeding, puncture, kidney injury, bruising, allergic reaction, and skin reaction. The patient demonstrates a clear understanding. We will schedule for the next appropriate time. Thank you for allowing us to assist in this patient's care. Coding Level of Care Code Est Pt Level 4 (47901) Complex EM visit Add On G2211 Diagnoses PAD (peripheral artery disease) I73.9
[2024-07-24 08:57] VITALS: BMI 20.8
--- OUTSIDE RECORDS SUMMARY | 2024-07-24 09:07 | XMS_ITS | Clinical Summary ---
Author Organization [facility] Address [address] [place] [address] Phone Care Team Providers Care Upper Tier Name Role Phone Renetta Mckinnon DOZER OPERATOR Primary Care Provider Allergies Active Allergy Reactions [...] recent surveillance chest CT scan performed at [facility] on February 14, 2024 shows no new, or worsening, pulmonary nodules or thoracic adenopathy to suggest recurrence or new disease. Will continue with routine chest CT surveillance the next of which will be in 6 months, August 2024. This will be done at [facility] per the patient's request and ease. [...] which she would like to have at [place] as it is much easier to get to and then follow-up in the office with one of the PAs. All questions were answered. Immunizations Name Administration Dates Next Due Ringio/Leadformance SARS-CoV-2 COVID -19, vector-nr, rS-Ad26, preservative free 05/20/2020 Deskwanted SARS-CoV-2 COVID-19, mRNA, LNP-S, preservative free 12/23/2020 Surgical History Surgery Date Site/Laterality Comments CHOLECYSTECTOMY PROCEDURE: HISTORICAL CHOLECYSTECTOMY HIP ARTHROPLASTY Right PROCEDURE: HISTORICAL HIP REPLACEMENT WRIST SURGERY Left PROCEDURE: HISTORICAL WRIST SURGERY Medical History Medical History Date Comments COPD (chronic obstructive pu lmonary disease) ([facility]/HCC V24, CMS/HCC V28) DX:COPD (chronic o bstructive [...] Documents on File Type Date Recorded 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
== END 2024-07-24 09:26 | disposition home or self-care (01) ==
LOC: HO.HVS 08:44
PROVIDERS: PCP Nurse Practitioner Family; Visit Provider Surgery Vascular Surgery
DX: I73.9 Peripheral vascular disease, unspecified (principal)
CPT/HCPCS: 99214; G2211

== ENCOUNTER → 2024-07-24 08:43 | Outpatient (BNVA) | payer MEDICARE, MEDICAID, SELFPAY | PROVIDERS: PCP Nurse Practitioner Family; Visit Provider Surgery Vascular Surgery | DX: M79.662 Pain in left lower leg (principal); M79.661 Pain in right lower leg; I73.9 Peripheral vascular disease, unspecified | CPT/HCPCS: 99212 ==

== ENCOUNTER 2024-08-01 07:42 | Day surgery (SDC) | payer MEDICARE, MEDICAID, SELFPAY ==
[2024-08-01] VITALS (24 sets, daily range): BP systolic 118–156; BP diastolic 45–70; PULSE 57–77; RESP 14–22; TEMP 36.1–36.5; O2SAT 93–100; BMI 20.8
[2024-08-01 08:54] LABS: Basophils Percent Auto 0.6 % (0-2); Eosinophils Absolute Auto 0.1 X10*3/uL (0.0-0.4); Eosinophils Percent Auto 2.1 % (0-4); Hematocrit 36.4 % (37.0-47.0); Hemoglobin 12.3 g/dl (12.0-16.0); Imm Gran Abs Auto 0.01 X10*3/uL (0.00-0.03); Imm Gran Pct Auto 0.2 % (0.0-0.4); Lymphocytes Absolute Auto 1.3 X10*3/uL (1.2-4.9); Lymphocytes Percent Auto 26.6 % (20-40); MANUAL DIFF FLAG NO; Mean Corpuscular HGB Conc 33.8 g/dl (31.0-35.0); Mean Corpuscular Hemoglobin 31.9 pg (27.0-33.0); Mean Corpuscular Volume 94.5 fL (80.0-98.0); Mean Platelet Volume 9.1 fL (9.4-12.3); Monocytes Absolute Auto 0.3 X10*3/uL (0.1-1.2); Monocytes Percent Auto 6.2 % (2-11); Neutrophils Absolute Auto 3.1 x10*3/uL (2.0-8.3); Neutrophils Percent Auto 64.3 % (45-73); Platelet Count 243 X10*3/uL (160-400); Red Blood Count 3.85 X10*6/uL (4.20-5.50); White Blood Count 4.8 X10*3/uL (4.8-10.8)
[2024-08-01 09:14] LABS: Blood Urea Nitrogen 13 mg/dL (9-16); Creatinine Clr Calc Pharmacy 51.6; Estimated Glomerular Filt Rate > 60
[2024-08-01] MEDS: Midazolam HCl 2 MG/2 ML VIAL 0.5 MG IVPUSH ×2 (09:30→09:45)
[2024-08-01] MEDS: fentaNYL citrate/PF 100 MCG/2 ML VIAL 25 MCG IVPUSH ×2 (09:30→09:45)
[2024-08-01] MEDS: Heparin Sodium,Porcine 10,000 UNIT/10 ML VIAL 4000 UNIT IVPUSH (09:53)
[2024-08-01] MEDS: Heparin Sodium,Porcine 10,000 UNIT/10 ML VIAL 1000 UNIT IVPUSH (10:02)
--- NOTE | 2024-08-01 10:33 | P.OP_ITS ---
Operative Note Operative Note Date of Service: 08/01/24 Narrative: Angiogram report from [facility] Preoperative diagnosis: Atherosclerosis of left lower extremity with activity limiting claudication Postoperative diagnosis: Same Procedure: 1. Ultrasound-guided right common femoral access 2. Aortogram with bilateral lower extremity runoff 3. Ultrasound-guided left common femoral access 4. Left common iliac and external iliac plasty and stent Surgeon:Armando Jorgensen M.D., FACS, RPVI Drying Oven Attendant:None Anesthesia: Local with moderate conscious sedation. Total intraservice moderate sedation time was 52 minutes. I monitored the patient's level of consciousness and physiologic status continuously throughout the procedure. Specimens:none Drains:none Estimated blood loss: Less than 10 ml Radiation Dose: 208.4 mGy Implant: Lincoln VBX 8 x 59, Medtronic Impact DCB 5 x 40 Indications: 74-year-old female with significant smoking history bilateral lower extremity pain. Been worked up for pain issues but was noted on noninvasive testing do have peripheral vascular disease along with diminished ABIs. She now presents for endovascular intervention The patient has signed the informed consent after reviewing risks, complications, benefits, and alternatives previously discussed with the patient. The patient was given the opportunity to ask any additional questions or voice any concerns. All questions were answered to the patient's satisfaction. Procedure in detail: Patient was brought to the angiography suite prior to which a time-out was called for patient identification and site verification. Bilateral groins were prepped and draped in the standard surgical fashion. Under ultrasound guidance right common femoral was punctured with micro puncture needle and wire. Subsequently a precision 5 Scottish sheath was then placed. Citycelebrityson wire was advanced to the level of the aorta. 5 Scottish Flush catheter was brought up and parked at the level of the renal arteries. Aortogram was then undertaken. Catheter was brought down to the level of the iliac bifurcation. Iliacs and runoff was performed through the flush catheter that was parked at the bifurcation and a power injection was performed to visualize bilateral runoff vessels. Subsequently the catheter was then brought in up and over to the left side common iliac. We were unable to traverse the occlusion in the common iliac. We subsequently punctured the left side under ultrasound guidance. In a similar fashion we placed a 5 Scottish precision sheath. We were then able to traverse this lesion with a Glidewire Advantage followed by a catheter. We did confirmed true lumen by instilling the catheter with contrast. Once this was accomplished we administered 5000 units of systemic heparin 4000 1st with an additional 1000 bolus after ACT. Once this was done we were able to plasty the common iliac and external iliac stenosis on the left side with a 5 x 40 regular balloon. We then upsized to a 7 Scottish sheath. Once we did obtain lumen we then followed this with a covered balloon expandable 8 x 59 stent. Once this was deployed we noticed that there was a mild stenosis distal to this we initially plasty this with a 5 x 40 balloon and subsequently followed this with a drug coated 5 x 40 balloon. This was brought into position in under 3 minutes and insufflated for a total of 3 minutes in duration. On the right side a 5 Scottish CELT closure device was then placed. In a similar fashion on the left side a 7 Scottish CELT closure device was then placed. Patient tolerated the procedure well returned to recovery with stable vitals. Interpretation of films: 1. Ultrasound demonstrates appropriate femoral access site. Vessel was patent with minimal stenosis. Needle entry was visualized. Image of ultrasound was saved. 2. Aortogram demonstrates appropriate caliber aorta. Minimal disease. Appropriate take-off of the renals. 3. Iliac images demonstrate calcified left common iliac and external iliac had total occlusions. 4. Left Leg Common femoral artery: Minimal disease Profundus Femoris: No significant disease Superficial femoral artery: Extremely calcified all the way through but no flow-limiting stenosis Popliteal artery (p1,p2,p3): No significant disease Anterior tibial artery: Present poorly visualized extremely calcified Peroneal artery: Present poorly visualized extremely calcified Posterior tibial artery: Present poorly visualized extremely calcified Dorsalis pedis/plantar arch: Not seen 5. Right Leg Common femoral artery: Minimal disease Profundus Femoris: No significant disease Superficial femoral artery: Calcified all the way through but no flow-limiting disease appreciated Popliteal artery (p1,p2,p3): No significant disease Anterior tibial artery: Present poorly visualized extremely calcified Peroneal artery: Present poorly visualized extremely calcified Posterior tibial artery: Present poorly visualized extremely calcified Dorsalis pedis/plantar arch: Not seen Conclusion: 1. Successful left iliac plasty and stent 2. Anticoagulation status: Aspirin and Plavix for 6 months This note is constructed using voice recognition software. While every effort has been made to ensure accuracy, pharmacy data analyst errors may have been included. Thank you for allowing me to participate in the care of your patient. Yours sincerely, Armando Jorgensen MD, FACS, R.P.V.I.
[2024-08-01 11:18] LABS: ACT 195 Celite s (79-173)
== END 2024-08-01 12:54 | disposition home or self-care (01) ==
PROVIDERS: PCP Nurse Practitioner Family; Visit Provider Surgery Vascular Surgery
DX: I70.212 Atherosclerosis of native arteries of extremities with intermittent claudication, left leg (principal); E78.00 Pure hypercholesterolemia, unspecified; J44.9 Chronic obstructive pulmonary disease, unspecified; Z85.118 Personal history of other malignant neoplasm of bronchus and lung; Z90.2 Acquired absence of lung [part of]; Z86.11 Personal history of tuberculosis; Z79.82 Long term (current) use of aspirin; Z79.899 Other long term (current) drug therapy; F17.210 Nicotine dependence, cigarettes, uncomplicated; Z98.890 Other specified postprocedural states
CPT/HCPCS: 36415; 37221; 76937; 82565; 84520; 85025; 85347; 99152; 99153; C1725; C1760; C1769; C1874; C1887; C1894; C2623; J1644; J2250; J3010; Q9967

== ENCOUNTER → 2024-08-01 07:42 | Outpatient (BNV) | payer MEDICARE, MEDICAID, SELFPAY | PROVIDERS: PCP Nurse Practitioner Family; Visit Provider Surgery Vascular Surgery | DX: I70.212 Atherosclerosis of native arteries of extremities with intermittent claudication, left leg (principal) | CPT/HCPCS: 37221; 37223; 75630; 76937; 99152 ==

== ENCOUNTER 2024-08-16 08:52 | Outpatient (AMB) | payer MEDICARE, MEDICAID, SELFPAY ==
--- OUTSIDE RECORDS SUMMARY | 2024-08-16 09:10 | XMS_ITS | Clinical Summary ---
Author Organization [facility] Address [address] [place] [address] Phone Care Team Providers Care Underwriting Analyst Name Role Phone Renetta Mckinnon COMBINATION TECHNICIAN Primary Care Provider Allergies Active Allergy Reactions [...] recent surveillance chest CT scan performed at [facility] on February 14, 2024 shows no new, or worsening, pulmonary nodules or thoracic adenopathy to suggest recurrence or new disease. Will continue with routine chest CT surveillance the next of which will be in 6 months, August 2024. This will be done at [facility] per the patient's request and ease. Patient will have a follow-up visit in the office following the CT scan. Resolved Problems Problem Noted Date Diagnosed Date Resolved Date Primary cancer of left lower lobe of lung (CMS/HCC V24, CMS/HCC V28) 04/14/2023 02/21/2024 Overview (12/29/2023): Last Assessment & Plan: 72-year-old woman had a da Roi left lower lobe wedge resection with completion [...] which she would like to have at [place] as it is much easier to get to and then follow-up in the office with one of the PAs. All questions were answered. Immunizations Name Administration Dates Next Due Tamecco/WaterplayUSA SARS-CoV-2 COVID -19, vector-nr, rS-Ad26, preservative free 05/20/2020 FolioDynamix SARS-CoV-2 COVID-19, mRNA, LNP-S, preservative free 12/23/2020 Surgical History Surgery Date Site/Laterality Comments CHOLECYSTECTOMY PROCEDURE: HISTORICAL CHOLECYSTECTOMY HIP ARTHROPLASTY Right PROCEDURE: HISTORICAL HIP REPLACEMENT WRIST SURGERY Left PROCEDURE: HISTORICAL WRIST SURGERY Medical History Medical History Date Comments COPD (chronic obstructive pu lmonary disease) ([facility]/HCC V24, CMS/HCC V28) DX:COPD (chronic o bstructive [...] 95 02/23/2024 9:27 AM EST Temperature 36.2 C (97.2 F) 02/23/2024 9:27 AM EST Respiratory Rate 16 02/23/2024 9:27 AM EST Oxygen Saturation 98% 02/23/2024 9:27 AM EST Inhaled Oxygen Concentration - - Weight 48.4 kg (106 lb 11.2 oz) 02/23/2024 9:27 AM EST Height 154.9 cm (5' 1 ) 02/23/2024 9:27 AM EST Body Mass Index 20.16 02/23/2024 9:27 AM EST Plan of Treatment Health Maintenance Due Date Last Done Comments Zoster Vaccines (1 of 2) 1969 Cholesterol Screening (Lipid Panel) 03/04/2023 Colorectal Cancer Screening: Colonoscopy 03/04/2023 Depression Screening 03/04/2023 Falls Risk Assessment 03/04/2023 Hepatitis C Screening 03/04/2023 Medicare Annual Wellness Visit 03/04/2023 Osteoporosis Screening (Bone Density Screening) 03/04/2023 Social Influencers of Health Screening 03/04/2023 Hypertension/CHF/CAD Annual BMP Blood Test 02/23/2024 COVID-19 Vaccine ( season) 2024 10/20/2023, 01/11/2023, 07/21/2021, Additional history exists RSV Immunization Adult Patients (1 - 1-dose 75+ series) 2024 Influenza Vaccine (#1) 2024 , 01/11/2023, 12/04/2020, Additional history exists DTaP,Tdap,and Td Vaccines (2 - Td or Tdap) 11/22/2026 11/22/2016 Pneumococcal Vaccine: 50+ Years Completed 11/27/2018, 12/06/2017, 07/29/2015 HIB Vaccines Aged Out No longer eligi [...] Documents on File Type Date Recorded 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
--- NOTE | 2024-08-16 09:14 | MHC.OFFVIS ---
Intake Visit Reasons: 2 week follow up left leg Angio 08/31/24 Intake Note: 2 week follow up Left LE Angio 08/31/24, pt states she can't tell the difference because her arthritis pain overshadows all other symptoms Accompanied by: Self / Same As Patient Allergies Fish Containing Products Allergy (Intermediate, Verified 08/16/24 09:18) ITCHING air conditioning Adverse Reaction (Uncoded 08/16/24 09:18) Difficulty Breathing HPI HPI 2 week follow up left leg Angio 08/31/24: Details: The patient is a 74-year-old female presenting for follow-up after angioplasty and stenting of the left common iliac and external iliac arteries. She underwent the procedure on August 01, 2024, due to significant blockages in these arteries. Post-procedure, she reports feeling stronger in one leg but experiences difficulty assessing improvement in the other due to existing hip and knee arthritis. The patient has a history of osteoarthritis affecting her hip and knee, which complicates her ability to evaluate the benefits of the vascular procedure. She describes pain extending from her hip to her knee, which limits her ability to perform strengthening exercises. Despite these challenges, she has been using exercise machines since her first surgery in 2018 to maintain leg strength. She now presents for routine follow-up. 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) History of tuberculosis (~1958) Nicotine dependence, cigarettes, uncomplicated COPD (chronic obstructive pulmonary disease) Hypercholesteremia Surgical History History of lobectomy of lung (~2022) History of total right hip replacement (~2018) History of surgery on left wrist (~2010) History of cholecystectomy Social History Patient Tobacco Use Status: Current someday Tobacco user Tobacco use type: Cigarette Cigarette Packs Per Day: 0.25 Cigarettes Per Day: 2 Years Smoked: (onset 17yo, 1ppd x 54yrs, now 1-3cig/week, 50pyh Review of Systems Const All systems reviewed & are unremarkable except as noted in HPI and below Reports no additional complaints ENT Reports Normal hearing present Card Denies chest pain, Denies chest pain at rest, Denies chest pain with activity and Denies pedal edema Resp Denies cough GI Denies abdominal pain Musc Denies abnormal gait, Denies muscle cramps and Denies radiating pain into limb Skin/Breast Denies skin ulcer and Denies wounds Neuro Reports Normal hearing present and Denies abnormal gait Psych Reports no additional complaints Physical Exam Const General: cooperative, healthy appearing and comfortable Orientation/consciousness: oriented to person, oriented to place and oriented to time HEENT Head: Yes normal to inspection Neck Neck: Yes normal visual inspection Carotids: no bruits Chest Chest palpation & inspection: normal inspection of the chest Resp Effort & Inspection: normal respiratory effort and able to speak in complete sentences Auscultation: clear to auscultation bilaterally, no crackles, no rales, no rhonchi and no wheezes Cardio Other: Bilateral DP signals Rate: regular rate Rhythm: regular rhythm Heart sounds: S1 normal heart sound present and S2 normal heart sound present Bruits: no carotid bruits GI Inspection: Yes normal to inspection Skin Wounds: no wounds Hair: normal Neuro General: oriented to person, oriented to place and oriented to time Cranial nerves: Yes CN's II-XII intact bilaterally and Yes Normal hearing present Cognition (Neuro): normal cognition Motor exam (neuro): 5/5 motor strength present throughout Extrem Other: venous exam: No significant superficial varicosities or spider telangiectasias, minimal edema General: No clubbing, No cyanosis and No edema Psych Appearance: grossly normal Mental Status: mental status grossly normal Speech and movement: Normal speech and movement present Assessment & Plan Assessment & Plan (1) PAD (peripheral artery disease): Comment: 08/01/2024 - left common iliac and external iliac plasty and stent Code(s): I73.9 - Peripheral vascular disease, unspecified Category: Medical Plan: In short patient is doing well postprocedure. Unclear if osteoarthritis is affecting her more than she lets on.. I did review the pathophysiology of peripheral vascular disease with the patient. In addition we did discuss routine conservative measures including a healthy diet and the importance of exercise and ambulation. We did discuss risk factor modification. The patient will continue to to follow-up with surveillance follow-up in approximately 3 months. Thank you for allowing us to participate in this patient's care. If there are any questions or concerns please do not hesitate to contact us. Orders: Orders US abdominal aortic aneurysm 3 Months I73.9 - Peripheral vascular disease, unspecified US arterial duplex LE BI 3 Months I73.9 - Peripheral vascular disease, unspecified Coding Level of Care Code Est Pt Level 4 (66018) Diagnoses PAD (peripheral artery disease) I73.9
== END 2024-08-16 09:37 | disposition home or self-care (01) ==
LOC: HO.HVS 08:52
PROVIDERS: PCP Nurse Practitioner Family; Visit Provider Surgery Vascular Surgery
DX: I73.9 Peripheral vascular disease, unspecified (principal)
CPT/HCPCS: 99214

== ENCOUNTER → 2024-08-16 08:52 | Outpatient (BNVA) | payer MEDICARE, MEDICAID, SELFPAY | PROVIDERS: PCP Nurse Practitioner Family; Visit Provider Surgery Vascular Surgery | DX: I73.9 Peripheral vascular disease, unspecified (principal) | CPT/HCPCS: 99212 ==

== ENCOUNTER 2024-09-22 09:15 | Outpatient (REF) | payer MEDICARE, MEDICAID, SELFPAY ==
--- NOTE | ~2024-09-22 | CT_ITS ---
CLINICAL HISTORY: History of lung cancer s p LLL lobectomy. CT chest without contrast Comparison: CT/SR - CT CHEST WO IV CON - 02/14/24 07:[address]/REG/SR - CT CHEST WO IV CON - 02/14/24 07:[address]/REG/SR - CT LUNG SCREEN FOLLOW UP - 06/18/22 08:[address]/SR - CT LUNG SCREENING - 03/19/22 13:37 EST Findings: No mediastinal mass or lymphadenopathy. Leftward shift of the mediastinum, chronic/ postsurgical. No cardiomegaly. Severe calcified coronary artery disease. Trace pericardial fluid. Normal size aorta. Severe calcified atherosclerotic disease. Status post left lower lobectomy. Mild scarring which is most prominent in the subpleural region in the left lung and at the lung apices. Paraseptal emphysema measures up to 1.0 cm. There are regions of confluent centrilobular emphysema. There are new pulmonary nodules bilaterally, the largest is in the left upper lobe and measures 7 mm ( series 4, image 26). Some of the nodules have a centrilobular distribution and measure up to 4 mm and are favored to be infectious/ inflammatory, such as in the right lower lobe. No pneumothorax. Trace left pleural fluid, stable. No acute osseous or soft tissue abnormality. No acute pathology in the imaged portion of the upper abdomen. Subcentimeter low attenuating lesion in the liver which is too small to characterize. Impression: New pulmonary nodules measuring up to 7 mm. Fleischner guidelines do not apply to patients with a history of malignancy, however 3-6 month follow-up chest CT would be appropriate. This document has been electronically signed by: Su Campbell MD on 09/25/2024 16:22:52
== END 2024-09-22 09:16 | disposition home or self-care (01) ==
LOC: HO.CT 09:15
PROVIDERS: PCP Nurse Practitioner Family; Visit Provider Physician Assistant
DX: Z85.118 Personal history of other malignant neoplasm of bronchus and lung (principal)
CPT/HCPCS: 71250

== ENCOUNTER → 2024-09-22 09:30 | Outpatient (BNV) | payer MEDICARE, MEDICAID, SELFPAY | PROVIDERS: PCP Nurse Practitioner Family; Visit Provider Radiology Diagnostic Radiology | DX: Z85.118 Personal history of other malignant neoplasm of bronchus and lung (principal) | CPT/HCPCS: 71250 ==

== ENCOUNTER 2024-11-20 07:55 | Outpatient (REF) | payer MEDICARE, MEDICAID, SELFPAY ==
--- NOTE | ~2024-11-20 | US_ITS ---
EXAMINATION: US RETROPERITONEAL LIMITED (AORTA) CLINICAL INFORMATION: I73.9 - Peripheral vascular disease, unspecified.Iliac stents; COMPARISON: None available. TECHNIQUE: Renee-scale, color Doppler and spectral Doppler evaluation of the abdominal aorta. FINDINGS: The aorta is normal. The measurements of the aorta in maximum AP and transverse dimensions respectively are as follows: Proximal: 2.6 cm. Mid: 1.9 cm. Distal: 2.1 cm. The measurements of the iliac arteries in maximum dimensions are as follows: Right: Common iliac artery: 1.1 cm Left: Optimally seen likely related to a stent. Color Doppler demonstrates blood flow through the stent. Biphasic waveform is documented. Lumen diameter is approximately 0.6 cm. Peak systolic velocity before the stent is 16.5 cm/s and distal to the stent is 27 cm/s. There is a heterogeneous region in the uterine fundus measuring 3.3 cm. There is a cystic area in the right adnexa measuring 3.2 cm long axis, likely an ovarian or paraovarian cyst. US/US abdominal aortic aneurysm IMPRESSION: No abdominal aortic aneurysm. Patent left common iliac artery stent. 3.3 cm partially calcified fundal fibroid. 3.2 cm right adnexal cyst could be ovarian or paraovarian in nature. Follow-up pelvic ultrasound in 6-10 weeks. Electronically signed by: Francis Dial MD 11/20/2024 10:53 AM EDT
--- NOTE | ~2024-11-20 | US_ITS ---
EXAMINATION: US LOWER EXTREMITY ARTERIES BILATERAL HISTORY: I73.9 - Peripheral vascular disease, unspecified TECHNIQUE: Ultrasound of the abdominal aorta was performed with color flow and spectral imaging. US V EXAMINATION: COLOR-FLOW DUPLEX IMAGING OF THE BILATERAL LOWER EXTREMITY ARTERIAL SYSTEM. VELOCITY MEASUREMENTS THROUGHOUT THE FEMORAL ARTERIES. Segmental ankle pulse volume recording, pressure measurement at the ankle and ankle brachial indices were obtained of the lower extremity arterial system bilaterally. This study was performed at rest only. CLINICAL INFORMATION: This is a 72-year-old female with bilateral claudication. Possible hemodynamically significant disease within the right popliteal region. COMPARISON: Comparison is made with prior exam most recent July 2024 FINDINGS: Real-time grayscale ultrasound imaging was performed and reviewed. Proximal abdominal aorta measures 2.6 cm Mid abdominal aorta measures 2.1 cm Distal abdominal aorta measures 2.1cm. Left proximal iliac artery measures 1.2 cm. There is a left common iliac artery stent. Left common iliac peak systolic velocity measures 52 cm/s and external iliac artery measures 74 cm/s. Right proximal iliac artery measures 1.1 cm. Right common iliac peak systolic velocity measures 98 cm/s and external iliac artery measures 86 cm/s. There is a 3 x 2.7 x 3.2 cm right adnexal cyst. There is a 3.1 x 3.1 x 3.5 cm calcified uterine lesion probably representing a fibroid. FINDINGS: a) AT REST: Patient unable to tolerate left DIE FITTER portion of DHRUV due to pain. Left DHRUV obtained at the dorsalis pedis artery. There may be reversed flow in the dorsalis pedis artery. 1. The ankle-brachial indices are: Right 0.71 and left 0.51. >0.97-1.25 = normal - no significant arterial disease. 0.75-0.96 = mild peripheral arterial disease. 0.5-0.74 = moderate peripheral arterial disease. <0.50 = severe peripheral arterial disease. 2. Segmental pressure at ankle: Decreased. 3. PVR waveform at ankle: Dampened. FINDINGS: There is significant atherosclerotic plaque. Exam limited due to arrhythmias and extensive plaque. RIGHT FEMORAL RUNOFF VELOCITIES: The right common femoral artery measures to 276 cm/s and triphasic. The right profunda femoral artery is 204 cm/s and is triphasic The right proximal femoral artery measures 159 cm/s and biphasic The right mid femoral artery is 141 cm/s and biphasic. The right distal right femoral artery measures 144 cm/s and is biphasic. The right popliteal velocity measures 126 cm/s and is monophasic The right posterior tibial artery velocity measures 43 cm/s and is biphasic. LEFT FEMORAL RUNOFF VELOCITIES: The left common femoral artery measures 409 cm/s and biphasic The left profunda femoral artery is 159 cm/s and is biphasic. The left proximal femoral artery measures 77 cm/s and biphasic. The left mid femoral artery is 53 cm/s and monophasic and visible significant stenosis. The left distal right femoral artery measures 43 cm/s and monophasic and visible proximal moderate stenosis. The left popliteal velocity measures 45 cm/s and monophasic The left posterior tibial artery velocity measures 28 cm/s and is monophasic. US/US arterial duplex LE BI IMPRESSION: Limited exam due to arrhythmia and extensive plaque. No evidence of an abdominal aortic aneurysm or inflow disease. Patent left common iliac artery stent. Right: Moderate atherosclerotic disease with increased peak systolic velocities in the right common femoral and proximal profunda femoral arteries. There is increased peak systolic velocity in the right popliteal artery and monophasic flow. The right DHRUV is 0.71. Left: Severe atherosclerotic disease with markedly increased peak systolic velocity in the left common femoral artery. There is monophasic flow from the left mid femoral artery to the lower leg and visible stenoses in the mid left superficial femoral and proximal popliteal arteries. Left DHRUV is 0.54. Incidental 3 cm right adnexal cyst and probable calcified uterine fibroids. Follow-up pelvic ultrasound recommended. Electronically signed by: Erica Amin MD 11/21/2024 09:19 AM EDT
--- OUTSIDE RECORDS SUMMARY | 2024-11-20 07:58 | XMS_ITS | Clinical Summary ---
Author Organization [facility] Address [address] [place] [address] Phone Care Team Providers Care Multi Care Technician Name Role Phone Renetta Mckinnon REHABILITATION MEDICINE PHYSICIAN Primary Care Provider Allergies Active Allergy Reactions [...] 1 Inhaler into the lungs daily. Active Plavix 75 mg tablet Take 1 tablet (75 mg total) by mouth. Active Active Problems Problem Noted Date Diagnosed Date Multiple pulmonary nodules 10/18/2024 History of lung cancer 02/21/2024 Assessment & Plan (10/18/2024 9:32 AM EDT): Ms. Luke is a 73-year-old female who had a robotic left lower lobectomy in August 2022 for stage I squamous cell carcinoma. The patient's most recent surveillance chest CT scan performed at [facility] in September 2024 shows multiple new subcentimeter pulmonary nodules the largest of which is a 7 mm nodule in her left upper lobe. This was performed in the setting of on and off sinus infections and are more likely representative government relations of inflammatory nodules. With that said, I recommend a follow-up CT chest in 3 months which would be December 2024. This will be done at [facility] per the patient's request. She also requests a video telemedicine visit (her daughter has that capability apparently) after that CT to go over the results. Assessment & Plan (02/21/2024 4:16 PM EST): Ms. Luke is a 73-year-old female who had a robotic left lower lobectomy in August 2022 for stage I squamous cell carcinoma. The patient's most recent surveillance chest CT scan performed at [facility] on February 14, 2024 shows no new, or worsening, pulmonary nodules or thoracic adenopathy to suggest recurrence or new disease. Will continue with routine chest CT surveillance the next of which will be in 6 months, August 2024. This will be done at [facility] per the patient's request and ease. Patient will have a follow-up visit in the office following the CT scan. Resolved Problems Problem Noted Date Diagnosed Date Resolved Date Primary cancer of left lower lobe of lung ([facility] V24, CMS/[facility] V28) 04/14/2023 02/21/2024 Overview (12/29/2023): Last Assessment [...] which she would like to have at [place] as it is much easier to get to and then follow-up in the office with one of the PAs. All questions were answered. Encounters Date Type Department Care Team Description 10/18/2024 9:00 AM EDT Office Visit Thoracic Surgery - [address] [address] Ingrid Carbajal PA History of lung cancer (Primary Dx); Multiple pulmonary nodules 09/06/2024 Telephone Thoracic Surgery - [place] [address] [place] [address] Kathy Stevens MA from Last 3 Months Immunizations Immunization Administration Dates Next Due Self Point/Lucidity (MemberRx) SARS-CoV-2 COVID -19, vector-nr, rS-Ad26, preservative free 05/20/2020 Pfizer SARS-CoV-2 COVID-19, mRNA, LNP-S, preservative free 12/23/2020 Surgical History Surgery Date Site/Laterality Comments CHOLECYSTECTOMY PROCEDURE: HISTORICAL CHOLECYSTECTOMY HIP ARTHROPLASTY Right PROCEDURE: HISTORICAL HIP REPLACEMENT WRIST SURGERY Left PROCEDURE: HISTORICAL WRIST SURGERY LUNG LOBECTOMY 08/11/2022 Left LLL Medical History Medical History Date Comments COPD (chronic obstructive pu lmonary disease) ([facility] V24, [facility] V28) DX:COPD (chronic o bstructive pulmonary disease) ([facility]) Tuberculosis of lung DX:Tubercul osis of lung Hypercholesteremia DX:Hyperchole steremia Nicotine dependence DX:Nicotine dependence Primary cancer of left lower lobe of lung ([facility] V24, [facility] V28) 04/14/2023 Last Assessment & Plan : [...] We also discussed surveillance protocol after surgery Lung cancer ([facility] V24, [facility] V28) 3 LLL Social History Tobacco Use Types Packs/Day Years [...] Sign Reading Time Taken Comments Blood Pressure 144/74 10/18/2024 9:08 AM EDT Pulse 86 10/18/2024 9:08 AM EDT Temperature 36.3 C (97.3 F) 10/18/2024 9:08 AM EDT Respiratory Rate 16 10/18/2024 9:08 AM EDT Oxygen Saturation 97% 10/18/2024 9:08 AM EDT Inhaled Oxygen Concentration - - Weight 45.7 kg (100 lb 11.2 oz) 10/18/2024 9:08 AM EDT Height 154.9 cm (5' 1 ) 10/18/2024 9:08 AM EDT Body Mass Index 19.03 10/18/2024 9:08 AM EDT Plan of Treatment Health Maintenance Due Date Last Done Comments Colorectal Cancer Screening: Colonoscopy 1949 Zoster Vaccines (1 of 2) 1968 Cholesterol Screening (Lipid Panel) 03/04/2023 Falls Risk Assessment 03/04/2023 Hepatitis C Screening 03/04/2023 Medicare Annual Wellness Visit 03/04/2023 Osteoporosis Screening (Bone Density Screening) 03/04/2023 Social Influencers of Health Screening 03/04/2023 Depression Screening 02/08/2024 Hypertension/CHF/CAD Annual BMP Blood Test 02/23/2024 RSV Immunization Adult Patients (1 - 1-dose 75+ series) 2024 COVID-19 Vaccine ( - season) 2024 10/20/2023, 01/11/2023, 07/21/2021, Additional history exists Influenza Vaccine (#1) 2024 , 01/11/2023, 12/04/2020, [...] Documents on File Type Date Recorded 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
== END 2024-11-20 07:56 | disposition home or self-care (01) ==
LOC: HO.US 07:55
PROVIDERS: PCP Nurse Practitioner Family; Visit Provider Surgery Vascular Surgery
DX: I73.9 Peripheral vascular disease, unspecified (principal)
CPT/HCPCS: 76706; 93925

== ENCOUNTER → 2024-11-20 07:57 | Outpatient (BNV) | payer MEDICARE, MEDICAID, SELFPAY | PROVIDERS: PCP Nurse Practitioner Family; Visit Provider Radiology Diagnostic Radiology | DX: Z13.6 Encounter for screening for cardiovascular disorders (principal) | CPT/HCPCS: 76706 ==

== ENCOUNTER 2024-11-27 08:52 | Outpatient (AMB) | payer MEDICARE, MEDICAID, SELFPAY ==
--- NOTE | 2024-11-27 08:55 | A.OFFVIS_ITS ---
Vital Signs 11/27/24 08:56 Height 5 ft 1 in Weight 110 lb BMI 20.8 Intake Visit Reasons: 3 mo follow up arterial US Intake Note: 3 mo follow up Arterial US 11/20/24 s/p Left LE Angio 08/31/24. Pt states when exercising she gets Left LE cramping. 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 She underwent a left common iliac and external iliac plasty on August 01, 2024, and has since been monitored with noninvasive arterial testing. The patient reports intermittent leg pain, particularly when engaging in exercises, and describes a sensation of a bryce horse and a bubble-like swelling in the legs. The patient also reports knee joint pain, which she describes as a tough spot with possible fluid buildup, and has been advised to consult with orthopedics for further evaluation. She mentions that the pain is present in both knees and is associated with a bulge that was not previously there. Additionally, the patient has a sinus infection that has not resolved with tcid-wcy-bzddyfx medications. She is currently taking clopidogrel and has been advised to start taking a daily baby aspirin as well. 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) History of tuberculosis (~1958) Nicotine dependence, cigarettes, uncomplicated COPD (chronic obstructive pulmonary disease) Hypercholesteremia Surgical History History of lobectomy of lung (~2022) History of total right hip replacement (~2018) History of surgery on left wrist (~2010) History of cholecystectomy Social History (Updated 11/27/24 @ 08:59 by ARI Silva) Patient Tobacco Use Status: Current someday Tobacco user Tobacco use type: Cigarette Cigarette Packs Per Day: 0.25 Cigarettes Per Day: 0 Years Smoked: (onset 17yo, 1ppd x 54yrs, now 1-3cig/week, 50pyh Review of Systems Const All systems reviewed & are unremarkable except as noted in HPI and below Reports no additional complaints ENT Reports Normal hearing present Card Denies chest pain, Denies chest pain at rest, Denies chest pain with activity and Denies pedal edema Resp Denies cough GI Denies abdominal pain Musc Denies abnormal gait, Denies muscle cramps and Denies radiating pain into limb Skin/Breast Denies skin ulcer and Denies wounds Neuro Reports Normal hearing present and Denies abnormal gait Psych Reports no additional complaints Physical Exam Vital Signs: BMI result Body Mass Index 20.8 Const General: cooperative, healthy appearing and comfortable Orientation/consciousness: oriented to person, oriented to place and oriented to time HEENT Head: Yes normal to inspection Neck Neck: Yes normal visual inspection Carotids: no bruits Chest Chest palpation & inspection: normal inspection of the chest Resp Effort & Inspection: normal respiratory effort and able to speak in complete sentences Auscultation: clear to auscultation bilaterally, no crackles, no rales, no rhonchi and no wheezes Cardio Other: Bilateral DP signals Rate: regular rate Rhythm: regular rhythm Heart sounds: S1 normal heart sound present and S2 normal heart sound present Bruits: no carotid bruits GI Inspection: Yes normal to inspection Skin Wounds: no wounds Hair: normal Neuro General: oriented to person, oriented to place and oriented to time Cranial nerves: Yes CN's II-XII intact bilaterally and Yes Normal hearing present Cognition (Neuro): normal cognition Motor exam (neuro): 5/5 motor strength present throughout Extrem Other: venous exam: No significant superficial varicosities or spider telangiectasias, minimal edema General: No clubbing, No cyanosis and No edema Psych Appearance: grossly normal Mental Status: mental status grossly normal Speech and movement: Normal speech and movement present Results Reviewed Results Reviewed: Arterial testing dated 11/20/2024 demonstrates DHRUV on the right of 0.71 and on the left of 0.51. Written report and images were reviewed. Assessment & Plan Assessment & Plan (1) PAD (peripheral artery disease): Comment: 08/01/2024 - left common iliac and external iliac plasty and stent Code(s): I73.9 - Peripheral vascular disease, unspecified Category: Medical Plan: I discussed with the patient the importance of continuing clopidogrel and starting a daily baby aspirin to aid in blood circulation. We reviewed the results of the arterial ultrasound, which showed stable arterial flow, and planned a follow-up ultrasound in six months. We did discuss routine risk factor modification. I advised the patient to consult with orthopedics for her knee joint pain and to seek further evaluation for her persistent sinus infection. Once again she will follow up with us in 6 months time. Thank you for allowing us to assist in her care. Plan Patient was informed and verbally consented to the use of an ambient scribe for clinic note documentation during this visit. Orders: Orders US arterial duplex LE BI 6 Months I73.9 - Peripheral vascular disease, unspecified US abdominal aortic aneurysm 6 Months I73.9 - Peripheral vascular disease, unspecified Patient Instructions: - Continue taking clopidogrel as prescribed. - Start taking a daily baby aspirin, 81 mg. - Schedule a follow-up arterial ultrasound in six months. - Consult with orthopedics for knee joint pain evaluation. - Seek further medical evaluation if sinus infection persists. Coding Level of Care Code Est Pt Level 4 (28997) Complex EM visit Add On G2211 Diagnoses PAD (peripheral artery disease) I73.9
[2024-11-27 08:56] VITALS: BMI 20.8
== END 2024-11-27 09:53 | disposition home or self-care (01) ==
LOC: HO.HVS 08:53
PROVIDERS: PCP Nurse Practitioner Family; Visit Provider Surgery Vascular Surgery
DX: I73.9 Peripheral vascular disease, unspecified (principal)
CPT/HCPCS: 99214; G2211

== ENCOUNTER → 2024-11-27 08:52 | Outpatient (BNVA) | payer MEDICARE, MEDICAID, SELFPAY | PROVIDERS: PCP Nurse Practitioner Family; Visit Provider Surgery Vascular Surgery | DX: Z71.2 Person consulting for explanation of examination or test findings (principal); I73.9 Peripheral vascular disease, unspecified | CPT/HCPCS: 99212 ==

== ENCOUNTER 2025-01-10 07:47 | Outpatient (REF) | payer MEDICARE, MEDICAID, SELFPAY ==
--- NOTE | ~2025-01-10 | XR_ITS ---
EXAMINATION: XR PELVIS 1-2 VIEWS HISTORY: M25.559 - Pain in unspecified hip COMPARISON: Comparison is made with the prior examination dated 12/19/2020. FINDINGS: A single AP view of the pelvis is submitted. The bones are osteopenic. The patient is status post right total hip arthroplasty. The orthopedic elements are in anatomic alignment on this single AP view. There is severe osteoarthritis of the left hip with joint space narrowing and osteophyte formation. There is no fracture or dislocation. There are vascular calcifications. Additional calcifications in the midline of the pelvis may represent uterine fibroids. XR/XR pelvis 1-2V IMPRESSION: Status post right total hip arthroplasty. Severe osteoarthritis of the left hip. Electronically signed by: Fuentes Davis MD 01/10/2025 09:08 AM RICH GOMEZ
--- OUTSIDE RECORDS SUMMARY | 2025-01-10 07:50 | XMS_ITS | Clinical Summary ---
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 With that said, I recommend a follow-up CT chest in 3 months which would be December 2024. This will be done at [facility] per the patient's request. She also [...] recent surveillance chest CT scan performed at [facility] on February 14, 2024 shows no new, or worsening, pulmonary nodules or thoracic adenopathy to suggest recurrence or new disease. Will continue with routine chest CT surveillance the next of which will be in 6 months, August 2024. This will be done at [facility] per the patient's request and ease. Patient will have a follow-up visit in the office following the CT scan. Resolved Problems Problem Noted Date Diagnosed Date Resolved Date Primary cancer of left lower lobe of lung ([facility] V24, [facility] V28) 04/14/2023 02/21/2024 Overview (12/29/2023): Last Assessment [...] which she would like to have at [place] as it is much easier to get to and then follow-up in the office with one of the PAs. All questions were answered. Encounters Date Type Department Care Team Description 10/18/2024 9:00 AM EDT Office Visit Thoracic Surgery - [address] [id number] Ingrid Carbajal PA History of lung cancer (Primary Dx); Multiple pulmonary nodules from Last 3 Months Immunizations Immunization Administration Dates Next Due [employer] SARS-CoV-2 COVID -19, vector-nr, rS-Ad26, preservative free 05/20/2020 [facility] SARS-CoV-2 COVID-19, mRNA, LNP-S, preservative free 12/23/2020 Surgical History Surgery Date Site/Laterality Comments CHOLECYSTECTOMY PROCEDURE: HISTORICAL CHOLECYSTECTOMY HIP ARTHROPLASTY Right PROCEDURE: HISTORICAL HIP REPLACEMENT WRIST SURGERY Left PROCEDURE: HISTORICAL WRIST SURGERY LUNG LOBECTOMY 08/11/2022 Left LLL Medical History Medical History Date Comments COPD (chronic obstructive pu lmonary disease) ([facility] V24, [facility] V28) DX:COPD (chronic o bstructive pulmonary disease) ([facility]) Tuberculosis of lung DX:Tubercul osis of lung Hypercholesteremia DX:Hyperchole steremia Nicotine dependence DX:Nicotine dependence Primary cancer of left lower lobe of lung (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
== END 2025-01-10 07:48 | disposition home or self-care (01) ==
LOC: HO.HOSX 07:47
PROVIDERS: Visit Provider Orthopaedic Surgery
DX: M16.12 Unilateral primary osteoarthritis, left hip (principal); I73.9 Peripheral vascular disease, unspecified; F17.210 Nicotine dependence, cigarettes, uncomplicated
CPT/HCPCS: 72170; 99212

== ENCOUNTER 2025-01-10 08:54 | Outpatient (AMB) | payer MEDICARE, MEDICAID, SELFPAY ==
[2025-01-10 09:02] VITALS: BMI 20.8
--- NOTE | 2025-01-10 09:02 | A.OFFVIS_ITS ---
Vital Signs 01/10/25 09:02 Height 5 ft 1 in Weight 110 lb BMI 20.8 Intake Visit Reasons: New Patient - Left Hip OA - Discuss LES Intake Note: Barb is a 74 year old female who presents today as a New Patient with complaints of Left Hip Pain. We last saw her in 2022 where we discussed her Severe Left Hip OA and were going to move forward with LES but surgery was cancelled due to respiratory infection. She is using OTC topical and oral medication for pain which is not helping significantly. She also has issues with her lower back which can be painful at times in conjunction with the Left Hip. HX of Right LES 11/27/2018 Balance Issues - Chronic Falls(?dizziness)- Uses Walker Partial Lobectomy s/p Left LE Angio 08/31/24 - Dr. Jorgensen Current Smoker: 1-3 Cigarettes a week COPD - Dr. Feng Allergies Fish Containing Products Allergy (Intermediate, Verified 01/10/25 09:09) ITCHING air conditioning Adverse Reaction (Uncoded 01/10/25 09:09) Difficulty Breathing HPI HPI New Patient - Left Hip OA - Discuss LES: Details: Barb is a 74 year old female who presents today as a New Patient with complaints of Left Hip Pain. We last saw her in 2022 where we discussed her Severe Left Hip OA and were going to move forward with LES but surgery was cancelled due to respiratory infection. She is using OTC topical and oral medication for pain which is not helping significantly. She also has issues with her lower back which can be painful at times in conjunction with the Left Hip. HX of Right LES 11/27/2018 Balance Issues - Chronic Falls(?dizziness)- Uses Walker Partial Lobectomy s/p Left LE Angio 08/31/24 - Dr. Jorgensen Current Smoker: 1-3 Cigarettes a week COPD - Dr. 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) History of tuberculosis (~1958) Nicotine dependence, cigarettes, uncomplicated COPD (chronic obstructive pulmonary disease) Hypercholesteremia Surgical History History of lobectomy of lung (~2022) History of total right hip replacement (~2018) History of surgery on left wrist (~2010) History of cholecystectomy Social History (Updated 11/27/24 @ 08:59 by ARI Silva) Patient Tobacco Use Status: Current someday Tobacco user Tobacco use type: Cigarette Cigarette Packs Per Day: 0.25 Cigarettes Per Day: 0 Years Smoked: (onset 17yo, 1ppd x 54yrs, now 1-3cig/week, 50pyh Physical Exam Exam Exam: Left hip with + impingement and painful limp Foot warm and well perfused Vital Signs: BMI result Body Mass Index 20.8 Results Reviewed Results Reviewed: I personally reviewed relevant radiographs. Severe left hip OA Bilateral atherosclerosis Assessment & Plan Assessment & Plan (1) Osteoarthritis of left hip: Code(s): M16.12 - Unilateral primary osteoarthritis, left hip Category: Medical Plan: Severe OA left hip. We discussed options. I do think there is vascular risk associated with surgery and she is not willign to risk limb loss and I cannot say this risk is not present. I would advise she have a risk assessment with Dr Jorgensen and she will think about it. At this point she is not interested in srugery. She is also smoking, albeit minimally. (2) PAD (peripheral artery disease): Comment: 08/01/2024 - left common iliac and external iliac plasty and stent Code(s): I73.9 - Peripheral vascular disease, unspecified Category: Medical Plan: s/p left femoral stent. US with severe disease on left Orders: Orders XR pelvis 1-2V Today M25.559 - Pain in unspecified hip Coding Level of Care Code Est Pt Level 4 (48062) Diagnoses Osteoarthritis of left hip M16.12 PAD (peripheral artery disease) I73.9
== END 2025-01-10 10:09 | disposition home or self-care (01) ==
LOC: HO.HOS 08:54
PROVIDERS: PCP Nurse Practitioner Family; Visit Provider Orthopaedic Surgery
DX: M16.12 Unilateral primary osteoarthritis, left hip (principal); I73.9 Peripheral vascular disease, unspecified
CPT/HCPCS: 99214

== ENCOUNTER → 2025-01-10 09:01 | Outpatient (BNV) | payer MEDICARE, MEDICAID, SELFPAY | PROVIDERS: Visit Provider Radiology Diagnostic Radiology | DX: M16.12 Unilateral primary osteoarthritis, left hip (principal); Z96.641 Presence of right artificial hip joint | CPT/HCPCS: 72170 ==